=== PATIENT | female | born 1935 | race Caucasian/White ===

== ENCOUNTER 2020-04-30 21:12 | Emergency (ER) | payer MEDICARE, BC ==
[~2020-04-30] VITALS: Ht 162.6 cm; Wt 50.9 kg
[~2020-04-30 21:12] MED LIST: ASPI-612 PO; ATOR10TA70 PO; CLON-529 PO; CLON0.3T36 PO; LISI2.5T2 PO; METO-292 PO; MIRT-116 PO
[2020-04-30 21:21] VITALS: BP 222/120
[2020-04-30 21:50] LABS: CLARITY,URINE SLIGHTLY CLOUDY (Clear); COLOR,URINE RED (Yellow); GLUCOSE, URINE NEGATIVE (Neg); KETONES,URINE NEGATIVE (Neg); LEUKOCYTE ESTERASE ,URINE SMALL (Neg); NITRITES, URINE NEGATIVE (Neg); OCCULT BLOOD,URINE LARGE (Neg); PH,URINE 7.5 (4.8-8.0); PROTEIN,URINE 100 mg/dl (Neg)
[2020-04-30 21:55] LABS: UA COLLECTION TYPE FOLEY CATH
[2020-04-30 22:10] LABS: RBC,URINE 20-50 /HPF (0-2)
[2020-04-30 22:11] LABS: BACTERIA,URINE 3+ /HPF (Neg); MUCUS STRANDS NONE SEEN /LPF (Neg); SQUAMOUS EPITHELIAL CELL,UR FEW /LPF (FEW)
--- NOTE | 2020-04-30 22:32 | NUR ---
latham dc'd per md request, filled with approx 120 cc's sterile water for fill and void test
--- NOTE | 2020-04-30 23:00 | NUR ---
latham replaced per , approx 200ml drained. latham bag placed on leg, draining
[2020-04-30] MEDS ORDERED: levoFLOXACIN 750MG TABLET PO ONE (23:35)
[2020-04-30] MEDS ORDERED: LEVO750T46 PO (23:39)
== END 2020-05-01 01:26 | disposition home or self-care (01) ==
LOC: ER 21:13
DX: N39.0 Urinary tract infection, site not specified (principal); R33.9 Retention of urine, unspecified; R10.84 Generalized abdominal pain; E78.00 Pure hypercholesterolemia, unspecified; I10 Essential (primary) hypertension; G89.29 Other chronic pain; Z87.01 Personal history of pneumonia (recurrent); Z79.82 Long term (current) use of aspirin; Z79.899 Other long term (current) drug therapy; Z79.2 Long term (current) use of antibiotics
CPT/HCPCS: 51702; 76857; 81001; 87077; 87088; 87186; 93005; 99285

== ENCOUNTER 2020-06-30 10:53 | Emergency (ER) | payer MEDICARE, BC ==
[~2020-06-30] VITALS: Ht 160 cm; Wt 51.1 kg
[2020-06-30 11:12] VITALS: BP 134/80
--- NOTE | 2020-06-30 12:10 | NUR ---
GOWN GIVEN TO PATIENT, CHANGED BY HERSELF. IN GURNEY WITH WARM BLANKETS
[2020-06-30 12:31] LABS: BASOPHILS # (AUTO) 0.1 X10'3 (0-0.2); BASOPHILS % (AUTO) 0.5 % (0-1); EOSINOPHILS # (AUTO) 0.1 X10'3 (0-0.9); EOSINOPHILS % (AUTO) 0.6 % (0-6); LYMPHOCYTES % (AUTO) 8.3 % (21-51); MEAN CORPUSCULAR HEMOGLOBIN 31.1 PG (27.0-31.0); MEAN CORPUSCULAR HGB CONC 33.4 g/dL (33.0-36.5); MEAN CORPUSCULAR VOLUME 93.2 FL (78-98); MEAN PLATELET VOLUME 7.1 FL (7.4-10.4); MONOCYTES % (AUTO) 8.3 % (2-12); NEUTROPHILS # (AUTO) 9.7 X10'3 (1.8-7.7); NEUTROPHILS % (AUTO) 82.3 % (42-75); PLATELET COUNT 202 X10'3 (140-440); RED BLOOD COUNT 3.87 X10'6 (4.20-5.60); RED CELL DISTRIBUTION WIDTH 14.5 % (11.5-14.5); WHITE BLOOD COUNT 11.8 X10'3 (4.5-11.0)
[2020-06-30] MEDS: LIDOcaine 2% 10ml TOPICAL JELLY (Urojet) TP ONE (12:31)
[2020-06-30 12:40] LABS: CLARITY,URINE CLEAR (Clear); COLOR,URINE YELLOW (Yellow); GLUCOSE, URINE NEGATIVE (Neg); KETONES,URINE NEGATIVE (Neg); LEUKOCYTE ESTERASE ,URINE NEGATIVE (Neg); NITRITES, URINE NEGATIVE (Neg); OCCULT BLOOD,URINE TRACE-INTACT (Neg); PROTEIN,URINE NEGATIVE (Neg); UROBILINOGEN,URINE 0.2 E.U/dL (0.2-1.0)
[2020-06-30 12:45] LABS: UA COLLECTION TYPE FOLEY CATH
[2020-06-30 12:48] LABS: MUCUS STRANDS FEW /LPF (Neg); SQUAMOUS EPITHELIAL CELL,UR FEW /LPF (FEW)
[2020-06-30 12:49] LABS: BACTERIA,URINE FEW /HPF (Neg); WBC,URINE 0-4 /HPF (0-4)
[2020-06-30 12:50] LABS: ALANINE AMINOTRANSFERASE 16 U/L (12-78); ALBUMIN 3.8 G/DL (3.4-5.0); ALBUMIN/GLOBULIN RATIO 1.2 (1.1-1.5); ALKALINE PHOSPHATASE 100 IU/L (46-116); ANION GAP 7 (8-16); ASPARTATE AMINO TRANSFERASE 18 U/L (10-37); BILIRUBIN,TOTAL 1.3 MG/DL (0.1-1.0); BLOOD UREA NITROGEN 27 MG/DL (7-18); BUN/CREATININE RATIO 17.9 (6.6-38.0); CALCIUM 9.8 MG/DL (8.5-10.1); CHLORIDE 106 MMOL/L (99-107); CREATININE 1.51 MG/DL (0.40-0.90); GLUCOSE 131 MG/DL (70-104); SODIUM 141 MMOL/L (135-145); TOTAL CARBON DIOXIDE 27.6 MMOL/L (24-32); TOTAL PROTEIN 7.1 G/DL (6.4-8.2); eGFR 33 ML/MIN
[2020-06-30] MEDS ORDERED: MYCOL30CR TP (13:13)
[2020-06-30] MEDS ORDERED: FLUC100T PO (13:13)
[2020-06-30] MEDS ORDERED: ACYC-202 PO (13:13)
--- NOTE | 2020-06-30 13:32 | NUR ---
Leg bag applied to patient. Pt educated on use of leg bag and how to empty.
== END 2020-06-30 13:41 | disposition home or self-care (01) ==
LOC: ER 10:54
DX: R33.9 Retention of urine, unspecified (principal); B02.9 Zoster without complications; B37.3 Candidiasis of vulva and vagina; M79.651 Pain in right thigh; E78.00 Pure hypercholesterolemia, unspecified; I10 Essential (primary) hypertension; G89.29 Other chronic pain; Z86.73 Personal history of transient ischemic attack (TIA), and cerebral infarction without residual deficits; Z79.82 Long term (current) use of aspirin; Z79.899 Other long term (current) drug therapy
CPT/HCPCS: 36415; 51702; 80053; 81001; 85025; 99284

== ENCOUNTER 2022-03-11 18:18 | Emergency (ER) | payer MEDICARE, BC ==
[~2022-03-11] VITALS: Ht 157.5 cm; Wt 50.0 kg
[~2022-03-11 18:18] MED LIST changes: +LISI2.5T14 PO; -LISI2.5T2 PO; +NYST30CR35 TP
[2022-03-11 18:22] VITALS: BP_SYST 60
[2022-03-11 18:54] LABS: CLARITY,URINE SLIGHTLY CLOUDY (Clear); COLOR,URINE YELLOW (Yellow); GLUCOSE, URINE NEGATIVE (Neg); KETONES,URINE NEGATIVE (Neg); LEUKOCYTE ESTERASE ,URINE TRACE (Neg); NITRITES, URINE NEGATIVE (Neg); OCCULT BLOOD,URINE MODERATE (Neg); PH,URINE 5.5 (4.8-8.0); PROTEIN,URINE TRACE mg/dl (Neg); UROBILINOGEN,URINE 0.2 E.U/dL (0.2-1.0)
[2022-03-11 19:06] LABS: UA COLLECTION TYPE CLN CATCH MIDSTREAM
[2022-03-11 19:10] LABS: BACTERIA,URINE 4+ /HPF (Neg); SQUAMOUS EPITHELIAL CELL,UR MODERATE /LPF (FEW)
[2022-03-11 19:36] LABS: BASOPHILS # (AUTO) 0.1 X10'3 (0-0.2); BASOPHILS % (AUTO) 0.4 % (0-1); EOSINOPHILS # (AUTO) 0.3 X10'3 (0-0.9); EOSINOPHILS % (AUTO) 1.4 % (0-6); LYMPHOCYTES # (AUTO) 4.4 X10'3 (1.1-4.8); LYMPHOCYTES % (AUTO) 22.1 % (21-51); MEAN PLATELET VOLUME 7.5 FL (7.4-10.4); MONOCYTES # (AUTO) 1.2 X10'3 (0-0.9); MONOCYTES % (AUTO) 5.8 % (2-12); NEUTROPHILS % (AUTO) 70.3 % (42-75); PLATELET COUNT 116 X10'3 (140-440)
[2022-03-11 19:59] LABS: MEAN CORPUSCULAR HEMOGLOBIN 30.7 PG (27.0-31.0); MEAN CORPUSCULAR HGB CONC 32.9 g/dL (33.0-36.5); MEAN CORPUSCULAR VOLUME 93.1 FL (78-98); RED BLOOD COUNT 2.35 X10'6 (4.20-5.60)
[2022-03-11 20:00] LABS: RED CELL DISTRIBUTION WIDTH 15.2 % (11.5-14.5)
[2022-03-11 20:01] LABS: HEMOGLOBIN 7.2 g/dl (12.0-16.0)
[2022-03-11 20:02] LABS: HEMATOCRIT 21.9 % (35.0-45.0)
[2022-03-11] MEDS ORDERED: piperacillin/tazo 3.375gm/50ml 50 ML IV ONE (20:40)
[2022-03-11 21:34] LABS: TOTAL CELLS COUNTED 100
[2022-03-11 21:35] LABS: PLATELET ESTIMATE DECREASED
[2022-03-11 21:36] LABS: ANISOCYTOSIS 1+; POIKILOCYTOSIS 1+; SMUDGE CELLS 1+
[2022-03-11 21:37] LABS: BURR CELLS 1+; ELLIPTOCYTES FEW
== END 2022-03-12 00:40 ==
LOC: ER 18:19
DX: M25.552 Pain in left hip (principal); E86.0 Dehydration; I11.9 Hypertensive heart disease without heart failure; E78.00 Pure hypercholesterolemia, unspecified; G89.29 Other chronic pain; M54.9 Dorsalgia, unspecified; Z79.899 Other long term (current) drug therapy; W19.XXXA Unspecified fall, initial encounter; Y93.89 Activity, other specified; Y92.89 Other specified places as the place of occurrence of the external cause; Y99.8 Other external cause status
CPT/HCPCS: 36415; 71045; 73502; 81001; 85007; 85025; 87077; 87088; 87186; 93005; 99285